=== PATIENT | male | born 1980 | race Caucasian/White ===

== ENCOUNTER 2021-01-21 20:50 | Emergency (ER) | payer MEDICAID, OTHER ==
[~2021-01-21] VITALS: Ht 175.3 cm; Wt 74.8 kg
--- NOTE | 2021-01-21 21:05 | NUR ---
PATIENT BIBSELF C/O SOB FOR THE PAST 5 DAYS. PATIENT SMOKED A BLUNT ONE WEEK AGO AND FELT RIGHT RIB PAIN. PATIENT TRIED USING INHALER WITH NO RELIEF. PATIENT IS A/O X 4, RR EVEN AND UNLABORED, NO SIGNS OF SOB NOTED. PATIENT IS CONNECTED TO [employer] AND [employer].
[2021-01-21] MEDS: ALBUTEROL FS 2.5 MG/3 ML VIAL.NEB NEB ONE (21:15)
[2021-01-21] MEDS: IPRATROPIUM NEB FS 0.5 MG/2.5 ML AMPUL.NEB NEB ONE (21:15)
[2021-01-21] MEDS ORDERED: IPRATROPIUM NEB FS 0.5 MG/2.5 ML AMPUL.NEB ONE (21:18)
[2021-01-21] MEDS ORDERED: ALBUTEROL FS 2.5 MG/3 ML VIAL.NEB ONE (21:18)
--- NOTE | 2021-01-21 21:23 | NUR ---
[facility]LAND[facility] SWABBED, SENT TO LAB.
[2021-01-21] MEDS ORDERED: methylPREDNISolone SOD SUCC 125 MG/2ML VIAL ONE (21:25)
[2021-01-21] MEDS: methylPREDNISolone SOD SUCC 125 MG/2ML VIAL IV ONE (21:36)
[2021-01-21] MEDS ORDERED: ALBU18HF2 INH (22:27)
[2021-01-21] MEDS ORDERED: PRED20TA PO (22:27)
--- NOTE | 2021-01-21 22:38 | NUR ---
Patient discharged to home in stable condition. RX and Written and verbal after care instructions given. Patient verbalizes understanding of instruction.
[2021-01-21 22:45] VITALS: BP 135/88
== END 2021-01-21 22:38 | disposition home or self-care (01) ==
LOC: ER 20:53
DX: J45.909 Unspecified asthma, uncomplicated (principal); Z20.822 Contact with and (suspected) exposure to COVID-19; R03.0 Elevated blood-pressure reading, without diagnosis of hypertension
CPT/HCPCS: 71045; 87426; 94644; 96374; 99285; C9803; J2930

== ENCOUNTER 2021-02-06 15:43 | Emergency (ER) | payer MEDICAID ==
[~2021-02-06] VITALS: Ht 175.3 cm; Wt 72.6 kg
[~2021-02-06 15:43] MED LIST: ALBU18HF2 INH; PRED20TA PO
--- NOTE | 2021-02-06 16:36 | NUR ---
40 years old male alert, oriented x4 walking to er c/o lower abdominal pain, pain with urination for 10 days.
[2021-02-06 16:39] LABS: BASOPHILS # (AUTO) 0.1 K/uL (0.0-0.2); BASOPHILS % (AUTO) 1.1 % (0.0-2.0); EOSINOPHILS % (AUTO) 9.4 % (0.0-6.0); HEMATOCRIT 49 % (39-51); HEMOGLOBIN 17.2 g/dL (13.5-17.5); LYMPHOCYTES # (AUTO) 2.7 K/uL (0.8-4.8); LYMPHOCYTES % (AUTO) 30.7 % (20.0-44.0); MEAN CORPUSCULAR HGB CONC 35 g/dl (31.0-36.0); MEAN CORPUSCULAR VOLUME 91 fL (80-96); MONOCYTES # (AUTO) 0.8 K/uL (0.1-1.30); MONOCYTES % (AUTO) 8.8 % (2.0-12.0); NEUTROPHILS # (AUTO) 4.3 K/uL (1.8-8.9); PLATELET COUNT (AUTO) 259 K/uL (150-450); RED BLOOD CELL COUNT(AUTO) 5.43 MIL/uL (4.5-6.0); WHITE BLOOD COUNT (AUTO) 8.7 K/uL (4.3-11.0)
[2021-02-06] MEDS ORDERED: KETOROLAC TROMETHAMINE 15 MG/ML VIAL ONE (16:43)
[2021-02-06 16:46] LABS: CALCIUM, SERUM 8.8 mg/dL (8.5-10.1); POTASSIUM 4.2 mmol/L (3.5-5.1)
[2021-02-06 16:52] LABS: ALBUMIN 4.2 g/dL (3.4-5.0); BILIRUBIN,DIRECT 0.1 mg/dL (0.0-0.2); BILIRUBIN,TOTAL 0.4 mg/dL (0.2-1.0); TOTAL PROTEIN, SERUM 7.9 g/dL (6.4-8.2)
[2021-02-06] MEDS ORDERED: IV NS 0.9% 250 ML IV ONE (16:59)
[2021-02-06] MEDS ORDERED: IOHEXOL-300 100 ML VIAL IV ONE (16:59)
[2021-02-06] MEDS ORDERED: IV NS 0.9% 1,000 ML IV ONE (17:00)
[2021-02-06] MEDS ORDERED: KETOROLAC TROMETHAMINE INJ 30 MG/ML VIAL IV ONE (17:00)
[2021-02-06 18:18] LABS: BILIRUBIN,URINE Negative (NEGATIVE); COLOR,URINE YELLOW (YELLOW); LEUKOCYTE ESTERASE ,URINE Negative (NEGATIVE); NITRITE, URINE Negative (NEGATIVE); PROTEIN,URINE Negative (NEGATIVE); UGLUCOSE Negative (NEGATIVE); UROBILINOGEN,URINE 0.2 EU/dL (0.2)
[2021-02-06 18:45] VITALS: BP 129/73
--- NOTE | 2021-02-06 18:46 | NUR ---
patient reassess pain free, awaiting for disposition, vital stable.
[2021-02-06] MEDS ORDERED: IBUP-1955 PO (18:49)
[2021-02-06] MEDS ORDERED: PANT20TA2 PO (18:49)
== END 2021-02-06 18:58 | disposition home or self-care (01) ==
LOC: ER 15:43
DX: R10.9 Unspecified abdominal pain (principal); E86.0 Dehydration; J45.909 Unspecified asthma, uncomplicated; F17.200 Nicotine dependence, unspecified, uncomplicated; Z90.89 Acquired absence of other organs; Z79.899 Other long term (current) drug therapy
CPT/HCPCS: 36415; 74177; 80048; 80076; 81003; 83690; 85025; 96361; 96374; 99285; J1885; J7030; J7050; Q9967